=== PATIENT | female | born 1960 | race American Indian/Alaskan Native ===

== ENCOUNTER 2018-03-05 10:14 | Emergency (ER) | payer SELFPAY ==
[2018-03-05 10:15] VITALS: BMI 28.1
[2018-03-05 10:17] VITALS: BP 103/63; PULSE 65; RESP 16; TEMP 97.7; O2SAT 99
--- NOTE | 2018-03-05 10:45 | ED PDOC ---
HPI: General Adult Time Seen by Provider: 03/05/18 10:30 Chief Complaint (Nursing): Abnormal Skin Integrity History Per: Patient (Sonja is 58 yo lady without significant past medical problem who presents for evaluaton of right hip that started about 2 weeks ago without obvious reason. She states that pain is worse when she stands and walks. She denies trauma. She is physically active and recently started riding her bike and jogging more. 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 She denies fever, chills, nausea, vomiting, urinary complaints.) History/Exam Limitations: no limitations Past Medical History Reviewed: Historical Data, Nursing Documentation, Vital Signs Vital Signs: Last Vital Signs Temp 97.7 F 03/05/18 10:16 Pulse 65 03/05/18 10:16 Resp 16 03/05/18 10:16 BP 103/63 03/05/18 10:16 Pulse Ox 99 03/05/18 10:47 - Medical History PMH: Gall Bladder Disease - Surgical History Surgical History: Cholecystectomy - Family History Family History: States: Unknown Family Hx - Living Arrangements Living Arrangements: Alone - Social History Current smoker - smoking cessation education provided: No Alcohol: Social Drugs: Cannabis (edibles) - Home Medications Home Medications: Ambulatory Orders Medication Instructions Recorded Acetaminophen/Butalbital/Caf 1 tab PO TID #20 tab 05/03/17 [Fioricet] Methylprednisolone [Medrol Dose 4 mg PO DAILY #21 mg 05/03/17 Pack (21 tabs)] Naproxen [Naprosyn] 500 mg PO BID PRN #20 tablet 03/05/18 - Allergies Allergies/Adverse Reactions: Allergies Allergy/AdvReac Type Severity Reaction Status Date / Time No Known Allergies Allergy Verified 03/05/18 10:21 Review of Systems ROS Statement: Except As Marked, All Systems Reviewed And Found Negative Musculoskeletal: Positive for: Other (right hip pain) Physical Exam - Reviewed Nursing Documentation Reviewed: Yes Vital Signs Reviewed: Yes - Physical Exam Appears: Positive for: Well, Non-toxic, No Acute Distress Head Exam: Positive for: ATRAUMATIC, NORMAL INSPECTION, NORMOCEPHALIC Skin: Positive for: Normal Color, Warm, DRY Eye Exam: Positive for: EOMI, Normal appearance, PERRL ENT: Positive for: Normal ENT Inspection Neck: Positive for: Normal, Painless ROM Cardiovascular/Chest: Positive for: Regular Rate, Rhythm Respiratory: Positive for: CNT, Normal Breath Sounds Gastrointestinal/Abdominal: Positive for: Normal Exam, Soft. Negative for: Tenderness, Distended, Guarding Back: Positive for: Normal Inspection. Negative for: L CVA Tenderness, R CVA Tenderness Extremity: Positive for: Normal ROM, Tenderness (palpable pain right superior ileac crest on the right side. ) Neurologic/Psych: Positive for: Alert, Oriented - ECG O2 Sat by Pulse Oximetry: 99 Disposition - Clinical Impression Clinical Impression: DJD (degenerative joint disease) - Patient ED Disposition Is Patient to be Admitted: No Doctor Will See Patient In The: Office Counseled Patient/Family Regarding: Diagnosis, Need For Followup, Rx Given - Disposition Referrals: [facility] [Outside] [facility] [Outside] Disposition: Routine/Home Disposition Time: 11:20 Condition: STABLE Prescriptions: Naproxen [Naprosyn] 500 mg PO BID PRN #20 tablet PRN Reason: Pain, Moderate (4-7) Instructions: Osteoarthritis Forms: [facility] ([place]) - POA Present On Arrival: None
--- NOTE | 2018-03-05 11:29 | RAD ---
PROCEDURE: Right Hip Radiographs. HISTORY: right hip pain COMPARISON: None. FINDINGS: BONES: No fracture. JOINTS: Bilateral hip mild arthrosis Bilateral L4-5 facet hypertrophic arthrosis. SOFT TISSUES: Normal. OTHER FINDINGS: Stool retention. IMPRESSION: No fracture or lytic lesion. Mild arthrosis -as above
== END 2018-03-05 12:13 | disposition home or self-care (01) ==
LOC: H.ER 10:14
DX: M16.11 Unilateral primary osteoarthritis, right hip (principal)